=== PATIENT | female | born 1990 | race Asian ===

== ENCOUNTER → 2021-05-01 17:00 | Outpatient (CLI) | payer OTHER, SELFPAY ==
[2021-05-01 17:51] LABS: Hemoglobin A1C% w Est Avg Glu 4.6 % (4.0-6.0)
[2021-05-01 19:58] LABS: Vitamin D 25 Hydroxy (D3) 26.8 ng/mL (30.0-100.0)
[2021-05-07 08:50] LABS: Percent Free Testosterone 3.29 % (0.50-2.80); Testosterone Free 1.03 ng/dL (0.10-0.85); Testosterone Total 31.3 ng/dL (10.0-55.0)
== END ==
PROVIDERS: PCP Family Medicine; Referring Provider Family Medicine; Visit Provider Family Medicine
DX: L68.0 Hirsutism (principal); N92.6 Irregular menstruation, unspecified; E55.9 Vitamin D deficiency, unspecified
CPT/HCPCS: 36415; 82306; 83036; 83498; 84402; 84403

== ENCOUNTER → 2021-07-16 11:05 | Outpatient (CLI) | payer OTHER, SELFPAY ==
--- NOTE | 2021-07-16 | DI.US.S_ITS ---
PROCEDURE: US PELVIC COMPLETE INDICATIONS: EVALUATE FOR POLYCYSTIC OVARIES TECHNIQUE: Real-time scanning was performed of the pelvic organs, with image documentation. Additional endovaginal scanning was necessary due to incomplete visualization of the adnexal and endometrial structures by transabdominal scanning. COMPARISON: None. FINDINGS: Uterus: Uterus is retroverted and normal in size at 8.6 x 5.4 x 3.9 cm. The myometrium is homogeneous. The endometrium measures 13.9 mm combined thickness. Trace endometrial and endocervical fluid. Ovaries: The right ovary measures 3.0 x 2.5 x 1.8 cm, with a calculated ovarian volume of 7.2 cc. The left ovary measures 3.0 x 2.3 x 2.3 cm, with a calculated ovarian volume of 8.3 cc. The ovaries have a normal sonographic appearance. Less than 12 follicles can be seen in each ovary. No adnexal masses are seen. Other: No pathologic free abdominal or pelvic fluid. IMPRESSION: 1. Small amount of endometrial and endocervical fluid. 2. Normal appearance of the ovaries. We strive to produce accurate, complete, and clear reports of imaging services. To assist us in improving patient care, this report was composed using standard report templates and voice recognition software. Therefore, it may contain abnormal punctuation, insertions and/or omissions. Occasional wrong-word or sound-alike substitutions may occur. Though we review the report and make efforts to correct it, we do recommend that the report be read carefully in proper context to recognize any text inaccuracies. Dictated by: Edmund VALDOVINOS Interpreted: Donny Hinds MD on 07/16/2021 at 11:48 Transcribed by: ELIZABETH on 07/16/2021 at 11:50 Approved by: Donny Hinds M.D. on 07/16/2021 at 14:40
== END ==
PROVIDERS: PCP Family Medicine; Referring Provider Family Medicine; Visit Provider Family Medicine
DX: Z01.89 Encounter for other specified special examinations
CPT/HCPCS: 76830; 76856

== ENCOUNTER → 2021-12-15 15:17 | Outpatient (CLI) | payer OTHER, SELFPAY ==
[2021-12-15 17:21] LABS: Hemoglobin A1C% w Est Avg Glu 4.7 % (4.0-6.0)
[2021-12-22 08:18] LABS: Percent Free Testosterone 1.91 % (0.50-2.80); Testosterone Free 0.39 ng/dL (0.10-0.85); Testosterone Total 20.5 ng/dL (10.0-55.0)
== END ==
PROVIDERS: PCP Family Medicine; Referring Provider Family Medicine; Visit Provider Family Medicine
DX: E28.2 Polycystic ovarian syndrome (principal); M41.9 Scoliosis, unspecified; G89.29 Other chronic pain; M54.41 Lumbago with sciatica, right side
CPT/HCPCS: 36415; 83036; 84402; 84403; 84443

== ENCOUNTER → 2022-02-09 12:36 | Outpatient (CLI) | payer OTHER, SELFPAY ==
--- NOTE | 2022-02-09 12:38 | DI.MG.S_ITS ---
BILATERAL DIGITAL DIAGNOSTIC MAMMOGRAM 3D/2D: 02/09/2022 CLINICAL: Breast lump. No prior exams were available for comparison. There are scattered fibroglandular elements in both breasts. No significant masses, calcifications, or other findings are seen in either breast. IMPRESSION: INCOMPLETE: NEEDS ADDITIONAL IMAGING EVALUATION There is no abnormality seen in the left breast to correspond with the palpable abnormality in the inferior aspect, however, ultrasound is recommended. Based on the Tyrer Cuzick model (a risk assessment model) the patient's lifetime risk is 12.5% and her 10 year risk is 0.4%. According to the ACR, ACS, and NCCN guidelines, an annual breast MRI exam along with mammogram is recommended if the patient's lifetime risk is 20% or greater. This exam was interpreted at Station ID: [id number]. NOTE: For mammograms, a report in lay terms will be sent to the patient. Approximately 15% of breast malignancies will not be visualized mammographically. In the management of a palpable breast mass, a negative mammogram must not discourage biopsy of a clinically suspicious lesion. Electronically Signed By: Jeff sam/dayana:02/09/2022 14:11:28 ACR BI-RADS Category 0: Incomplete [id number]
--- NOTE | 2022-02-09 12:38 | DI.MRI.S_ITS ---
PROCEDURE: MR LUMBAR SPINE WO CON INDICATIONS: chronic low back pain TECHNIQUE: Noncontrast sagittal T1 spin echo and T2 fast echo, sagittal STIR, and T2 fast spin echo through the lumbar spine. In cases with scoliosis, additional coronal T2 fast spin echo may be performed. COMPARISON: None. FINDINGS: Image quality: Excellent. Alignment and Curvature: There is normal bony alignment. Bone Marrow: Marrow is of normal overall signal. No acute vertebral body compression fractures. Spinal Cord: Conus medullaris terminates at the L1 level. Visualized cord demonstrates normal signal and size. Paraspinous Soft Tissues: No paravertebral masses. T12-S1: No disc bulge, spinal stenosis or foraminal narrowing. IMPRESSION: Unremarkable exam. Dictated by: Diamond Chase M.D. on 02/09/2022 at 16:20 Approved by: Diamond Chase M.D. on 02/09/2022 at 16:23
--- NOTE | 2022-02-09 12:38 | DI.US.S_ITS ---
LIMITED ULTRASOUND OF LEFT BREAST: 02/09/2022 CLINICAL: Palpable left breast lump. Comparison is made to exam dated: 02/09/2022 mammogram - [facility]. Color flow and real-time ultrasound of the left breast 5 o'clock region were performed. [place]ourke scale images of the real-time examination were reviewed. There is a benign 0.6 cm x 0.7 cm x 0.3 cm oval mass with a circumscribed margin within the skin of the left breast at 5 o'clock 3 cm from the nipple. This oval mass is hypoechoic. This correlates as palpated. Color flow imaging demonstrates that there is an adjacent vascularity. This lesion is located in the skin, and is therefore not a breast lesion. IMPRESSION: BENIGN There is no sonographic evidence of malignancy. The 0.6 cm x 0.7 cm x 0.3 cm oval mass within the skin of the left breast resembles a sebaceous cyst and is benign. Recommend clinical correlation and possible Dermatology consult if clinically indicated. This exam was interpreted at Station ID: [id number]. Electronically Signed By: Jeff sam/dayana:02/09/2022 14:14:42 letter sent: Clinical Evaluation Ultrasound BI-RADS: 2 Benign
== END ==
PROVIDERS: PCP Family Medicine; Referring Provider Family Medicine; Visit Provider Family Medicine
DX: R92.2 Inconclusive mammogram (principal); N63.23 Unspecified lump in the left breast, lower outer quadrant; R29.898 Other symptoms and signs involving the musculoskeletal system; M54.41 Lumbago with sciatica, right side; G89.29 Other chronic pain
CPT/HCPCS: 72148; 76642; 77066; G0279

== ENCOUNTER → 2022-08-08 15:37 | Outpatient (CLI) | payer OTHER, SELFPAY ==
[2022-08-08 16:42] LABS: Influenza A - CEPHEID Flu A NEGATIVE (NEGATIVE); Influenza B - CEPHEID Flu B NEGATIVE (NEGATIVE); Respiratory Syncytial Virus Negative (Negative)
[2022-08-08 16:49] LABS: COVID-19 CEPHEID 4-PLEX PCR Negative (Negative)
== END ==
PROVIDERS: PCP Family Medicine; Visit Provider Nurse Practitioner Family
DX: J06.9 Acute upper respiratory infection, unspecified (principal)
CPT/HCPCS: 0241U

== ENCOUNTER → 2023-03-18 16:55 | Outpatient (CLI) | payer OTHER, SELFPAY ==
[2023-03-18 18:06] LABS: Hemoglobin A1C% w Est Avg Glu 4.5 % (4.0-6.0)
[2023-03-18 18:11] LABS: Add Manual Diff / Slide Review NO; Basophils Absolute Auto 100 /uL (0-100); Basophils Percent Auto 0.7 % (0-2); Eosinophils Absolute Auto 200 /uL (0-450); Eosinophils Percent Auto 2.2 % (2-4); Hematocrit 37.1 % (36-46); Hemoglobin 12.4 g/dL (12.0-16.0); Lymphocytes Absolute Auto 2200 /uL (1100-4500); Lymphocytes Percent Auto 29.4 % (25-40); Mean Corpuscular HGB Conc 33.3 % (30-36); Mean Corpuscular Hemoglobin 27.1 PG (26-34); Mean Corpuscular Volume 81.1 fL (80-100); Monocytes Absolute Auto 600 /uL (0-900); Monocytes Percent Auto 7.6 % (3-14); Neutrophils Absolute Auto 4500 /uL (1500-7000); Neutrophils Percent Auto 60.1 % (50-75); Platelet Count 229 X10^3/uL (150-400); Red Blood Cell Count 4.58 X10^6/uL (4.0-5.2); Red Cell Distribution Width 12.3 % (11.6-14.8); White Blood Cell Count 7.4 X10^3/uL (4.5-11.0)
[2023-03-18 19:16] LABS: Alanine Aminotransferase 43 IU/L (<35); Albumin 4.2 g/dL (3.5-5.0); Alkaline Phosphatase 65 U/L (38-126); Aspartate Aminotransferase 33 IU/L (14-36); Bilirubin Total 0.2 mg/dL (0.2-1.3); Blood Urea Nitrogen 10 mg/dL (7-17); Calcium 9.1 mg/dL (8.4-10.2); Carbon Dioxide 25 mmol/L (22-32); Chloride 103 mmol/L (98-107); Cholesterol 167 mg/dL (140-199); Estimated Glomerular Filt Rate > 60 mL/min (>60); Globulin 4.3 g/dL (1.7-4.1); Glucose 105 mg/dL (70-100); HDL Cholesterol 34 mg/dL (40-60); HEMOLYSIS < 15 (0-50); LDL Cholesterol Calculated 93 mg/dL (<100); Potassium 3.6 mmol/L (3.4-5.1); Sodium 137 mmol/L (137-145); Total Protein 8.5 g/dL (6.3-8.2); Triglycerides 200 mg/dL (35-150)
[2023-03-18 19:45] LABS: TSH w/ Reflex to FT4 1.24 uIU/mL (0.47-4.68)
== END ==
PROVIDERS: PCP Family Medicine; Referring Provider Family Medicine; Visit Provider Family Medicine
DX: E28.2 Polycystic ovarian syndrome (principal); K21.9 Gastro-esophageal reflux disease without esophagitis; L70.9 Acne, unspecified
CPT/HCPCS: 36415; 80053; 80061; 83036; 84443; 85025

== ENCOUNTER → 2023-03-31 15:43 | Outpatient (CLI) | payer OTHER, SELFPAY ==
[2023-03-31 17:46] LABS: Alanine Aminotransferase 29 IU/L (<35); Albumin 4.7 g/dL (3.5-5.0); Albumin Globulin Ratio 1.1 (1.0-2.8); Alkaline Phosphatase 57 U/L (38-126); Aspartate Aminotransferase 27 IU/L (14-36); Bilirubin Total 0.2 mg/dL (0.2-1.3); Blood Urea Nitrogen 9 mg/dL (7-17); Calcium 9.5 mg/dL (8.4-10.2); Carbon Dioxide 26 mmol/L (22-32); Chloride 104 mmol/L (98-107); Estimated Glomerular Filt Rate > 60 mL/min (>60); Globulin 4.3 g/dL (1.7-4.1); Glucose 88 mg/dL (70-100); HEMOLYSIS < 15 (0-50); Potassium 3.6 mmol/L (3.4-5.1); Sodium 139 mmol/L (137-145)
[2023-04-02 17:08] LABS: Albumin 3.7 g/dL (2.9-4.4); Alpha-1-Globulin 0.2 g/dL (0.0-0.4); Alpha-2-Globulin 0.7 g/dL (0.4-1.0); Gamma Globulin 2.1 g/dL (0.4-1.8); Globulin Total 4.3 g/dL (2.2-3.9)
[2023-04-08 12:12] LABS: Urine Total Protein 14.7 mg/dL (Not Estab.)
--- NOTE | 2023-04-14 09:39 | PC.NURSE ---
Heme referral: LVM for pt to call back in regards to this.
== END ==
PROVIDERS: PCP Family Medicine; Referring Provider Family Medicine; Visit Provider Family Medicine
DX: R77.9 Abnormality of plasma protein, unspecified (principal)
CPT/HCPCS: 36415; 80053; 84155; 84156; 84165; 84166